=== PATIENT | female | born 1970 | race Caucasian/White ===

== ENCOUNTER 2022-05-22 08:45 | Day surgery (SDC) | payer OTHER ==
[2022-05-22] MEDS ORDERED: Sodium Chloride 0.9(Preservative Free) 10 ML IJ ONE (08:46)
[2022-05-22] MEDS ORDERED: Xylocaine 1% Vial 30 ML PF IJ ONE (08:46)
[2022-05-22] MEDS ORDERED: Depo-Medrol 40 MG/ML IM ONE (08:46)
[2022-05-22] MEDS ORDERED: Versed 2 MG/2 ML Injection ONE (09:17)
[2022-05-22] MEDS ORDERED: DIPRIVAN 200 MG/20 ML IV ONE ×2 (09:55→10:09)
--- NOTE | 2022-05-22 11:44 | XRAY ---
Indication: Caudal ADRIAN. Intraoperative fluoroscopy provided for 32 seconds. 3 digital spot image submitted for interpretation demonstrates caudal needle tip projecting mid sacrum. Small amount of contrast injected for needle tip placement. Correlate with intraoperative findings/report.
--- NOTE | 2022-05-22 12:11 | XRAY ---
32 seconds of fluoroscopy was used in surgery for a caudal ADRIAN.
[2022-05-22] MEDS ORDERED: Lactated Ringers 1,000 ML IV ONE (13:05)
== END 2022-05-22 10:30 | disposition home or self-care (01) ==
LOC: SDC-PAIN 08:45
PROVIDERS: ATTEND Psychiatry & Neurology Pain Medicine
DX: M54.16 Radiculopathy, lumbar region (principal); Z79.899 Other long term (current) drug therapy
CPT/HCPCS: 62323; 72220; 77003; J1030; J2001; J2250; J2704; Q9966